=== PATIENT | female | born 1955 | race Hispanic/Latino ===

== ENCOUNTER → 2022-06-08 | Day surgery (SDC) | payer OTHER ==
[~2022-06-08] MED LIST: Atropine Sulfate 0.4 mg/1 ml Vial ONE; Fentanyl 100 MCG/2 ML VIAL ONE; Heparin 10,000 UNITS/ 10 ML VIAL ONE; Iopamidol 300 61% 100 ML VIAL FS ONE; Iopamidol 300 61% 50 ML VIAL FS ONE; Lidocaine 1% (PF) 30 ML VIAL ONE; Midazolam HCl 2 mg/2 ml Vial ONE; Nitroglycerin 50 MG/250 ML BOT 250 ML ONE; PHENYLEPHRINE-NS 100 MCG/ML 10 ML SYRINGE ONE; Phenylephrine 40 MG/NS 250 ML 250 ML ONE; Protamine Sulfate 50 MG/5 ML VIAL ONE
[2022-06-08 07:27] LABS: #Basophils 0.1 10x3/uL (0.0-0.2); #Eosinphils 0.2 10x3/uL (0.0-0.5); #Monocytes 0.4 10x3/uL (0.0-1.1); #Neutrophils 3.9 10x3/uL (1.5-8.4); %Basophils 0.6 % (0.0-2.0); %Lymphocytes 43.1 % (18.0-47.0); %Monocytes 5.1 % (0.0-10.0); Anion Gap 15 mmol/L (10-20); BUN (Urea Nitrogen) 10 mg/dL (9.8-20.1); Calc. Creatinine Clearance 0 mL/min (70-130); Carbon Dioxide 23 mmol/L (23-31); Chloride 106 mmol/L (98-107); Estimated GFR 85; Glucose 154 mg/dL (80-115); Hemoglobin 13.4 g/dL (12.0-15.5); Mean Corpuscular HGB CONC 34.2 g/dL (32.0-36.0); Mean Corpuscular Hemoglobin 29.8 pg (27.0-33.0); Mean Corpuscular Volume 87.3 fl (81.6-98.3); Mean Platelet Volume 9.6 fl (7.4-10.4); Platelet Count 280 10x3/uL (150-450); RBC Distribution Width 13.4 % (11.5-14.5); Red Blood Cell (RBC) Count 4.49 10x6/uL (3.90-5.03); Sodium 140 mmol/L (136-145)
[2022-06-08 07:36] LABS: INR-International Normal Ratio 0.9
[2022-06-08 07:43] LABS: PTT 20.5 sec (22.0-33.0)
== END ==
LOC: CSHSDC 06:26
PROVIDERS: ATTEND Specialist
DX: I65.23 Occlusion and stenosis of bilateral carotid arteries (principal); I25.10 Atherosclerotic heart disease of native coronary artery without angina pectoris; E78.2 Mixed hyperlipidemia; I10 Essential (primary) hypertension; E11.9 Type 2 diabetes mellitus without complications; Z79.84 Long term (current) use of oral hypoglycemic drugs; Z79.899 Other long term (current) drug therapy
CPT/HCPCS: 36222; 36227; 80048; 85025; 85347 ×2; 85610; 85730; C1760; C1769; C1884; C1894 ×2; 99152; 99153; J0461; J1644; J2001; J2250; J2720; J3010; Q9967

== ENCOUNTER 2023-10-14 08:42 | Outpatient (CLI) | payer OTHER | END 2023-10-14 08:43 | disposition home or self-care (01) | LOC: CSHCT 08:42 | PROVIDERS: ATTEND Student in an Organized Health Care Education/Training Program | DX: I65.22 Occlusion and stenosis of left carotid artery (principal); E07.89 Other specified disorders of thyroid | CPT/HCPCS: 70498; 82565 ==